=== PATIENT | female | born 1950 | race Caucasian/White ===

== ENCOUNTER 2017-02-12 17:47 | Observation (INO) | payer OTHER ==
[2017-02-12 18:49] LABS: BASOPHILS % (AUTO) 0.2 % (0.2-1.0); EOSINOPHILS # (AUTO) 0.1 x10^3/uL (0.0-0.2); HEMATOCRIT 41.4 % (36.0-47.0); LYMPHOCYTES # (AUTO) 2.2 X10^3/uL (1.3-2.9); LYMPHOCYTES % (AUTO) 22.9 % (21.0-51.0); MEAN CORPUSCULAR HEMOGLOBIN 28.2 pg (27.0-34.0); MEAN CORPUSCULAR HGB CONC 33.7 g/dL (33.0-35.0); MEAN CORPUSCULAR VOLUME 83.5 fL (80.0-100.0); MEAN PLATELET VOLUME 7.4 fL (7.4-11.0); MONOCYTES # (AUTO) 0.6 x10^3/uL (0.3-0.8); MONOCYTES % (AUTO) 6.4 % (0.0-13.0); NEUTROPHILS # (AUTO) 6.6 x10^3/uL (2.2-4.8); NEUTROPHILS % (AUTO) 69.5 % (42.0-75.0); PLATELET COUNT 285 X10^3/uL (150.0-450.0); RED BLOOD COUNT 4.96 X10^6/uL (3.5-5.4); RED CELL DISTRIBUTION WIDTH 13.4 % (11.6-16.5); WHITE BLOOD COUNT 9.6 X10^3/uL (3.6-10.0)
[2017-02-12 19:05] LABS: ALANINE AMINOTRANSFERASE 21 Units/L (12-78); ALBUMIN 3.5 g/dL (3.4-5.0); ALKALINE PHOSPHATASE 115 Units/L (46-116); ASPARTATE AMINO TRANSFERASE 13 Units/L (15-37); BLOOD UREA NITROGEN 18 mg/dL (7-18); CARBON DIOXIDE 27.7 mmol/L (21-32); CHLORIDE 101 mmol/L (98-107); COR NA(FOR HYPERGLY) 144 mmol/L (136-145); CREATININE 0.83 mg/dL (0.55-1.02); GLUCOSE 290 mg/dL (65-99); SODIUM 139 mmol/L (136-145); TOTAL PROTEIN 7.5 g/dL (6.4-8.2); eGFR BLACK RACES > 60 (>60); eGFR NON BLACK RACES > 60 (>60)
[2017-02-12 20:04] LABS: BILIRUBIN,URINE NEGATIVE (NEGATIVE); BLOOD/HEMOGLOBIN,URINE NEGATIVE (NEGATIVE); GLUCOSE, URINE 4+ (NEGATIVE); KETONES,URINE NEGATIVE (NEGATIVE); LEUKOCYTE ESTERASE ,URINE NEGATIVE (NEGATIVE); NITRITES,URINE NEGATIVE (NEGATIVE); PROTEIN,URINE 1+ (NEGATIVE); UROBILINOGEN,URINE NORMAL (NORMAL)
[2017-02-12 20:17] LABS: APPEARANCE,URINE CLEAR (CLEAR); BACTERIA,URINE NEGATIVE /HPF (NEGATIVE); COLOR,URINE YELLOW (YELLOW); RBC,URINE NONE SEEN /HPF (NEGATIVE); SQUAMOUS EPITHELIAL CELL,UR RARE /HPF (NEGATIVE)
[2017-02-12 20:44] VITALS: BMI 28.5
[2017-02-12] MEDS: MORPHINE SULFATE INJ 2 MG IVP PRN (21:20)
[2017-02-12] MEDS: SOLU-Medrol 125 MG VIAL IVP SCH (21:20)
[2017-02-12] MEDS: HumuLIN R SUBCUT PRN (21:26)
[2017-02-12] MEDS ORDERED: TYLENOL 325 MG TAB PO PRN (23:37)
[2017-02-13] MEDS ORDERED: NORCO 5/325 MG TAB PO PRN (02:56)
[2017-02-13] MEDS ORDERED: ATIVAN INJ 2 MG VIAL IVP PRN (02:57)
[2017-02-13] MEDS: TORADOL 30 MG VIAL IVP SCH ×2 (03:41→11:05)
[2017-02-13] MEDS: HumuLIN R SUBCUT PRN ×2 (06:10→14:52)
[2017-02-13] MEDS: SOLU-Medrol 125 MG VIAL IVP SCH (08:24)
[2017-02-13] MEDS: MORPHINE SULFATE INJ 2 MG IVP PRN (12:58)
--- NOTE | 2017-02-13 15:16 | MRI ---
MRI cervical spine without contrast Indication: Neck and left shoulder pain Technique: Multiplanar, multi sequence imaging of the cervical spine without IV contrast administrat ion. Findings: Cervical spine alignment is maintained; however, there is loss of normal cervical lordosis . Vertebral body heights are preserved. There is normal bone marrow signal throughout the cervical s pine. No significant disk desiccation or disc space loss identified. No prevertebral or paraspinal s oft tissue swelling or fluid collection. The craniocervical junction is intact with very mild mass e ffect by the degenerative change within the atlantodental joint. No mass or mass effect identified w ithin the visualized posterior fossa. Cervical spine demonstrates normal signal without evidence of atrophy or expansion. The At C2-3 unremarkable At C3-4 mild disc osteophyte complex and uncovertebral hypertrophy causes mild spinal canal stenosis with mild bilateral neural foraminal narrowing. At C4-5 disc osteophyte complex, uncovertebral hypertrophy and a left lateralizing disc protrusion s een on sagittal image 9 causing moderate spinal canal stenosis and mild cord flattening. There is mo derate left lateral recess compression. Mild left and no significant right-sided neural foraminal st enosis. At C5-6 disc osteophyte complex and uncovertebral hypertrophy causes moderate spinal canal stenosis with mild cord flattening. There is moderate left and mild right-sided neural foraminal narrowing. At C6-7 disc osteophyte complex and uncovertebral hypertrophy causes mild spinal canal stenosis and mild left-sided neural foraminal narrowing. At C7-T1 unremarkable. Impression: Multilevel discogenic degenerative change causing varying degrees of spinal canal and ne ural foraminal stenosis as described above. Reported By:
[2017-02-13 15:38] VITALS: BP 168/89
[2017-02-13] MEDS ORDERED: ATIVAN TAB 1 MG PO PRN (15:52)
[2017-02-13] MEDS ORDERED: FLEXERIL TAB 10 MG PO PRN (15:52)
[2017-02-13] MEDS ORDERED: PHENERGAN TAB 25 MG PO PRN (15:52)
[2017-02-13] MEDS ORDERED: ULTRAM PO PRN (15:52)
--- NOTE | 2017-02-13 15:52 | MRI ---
Left shoulder MRI without contrast Indication: Shoulder pain with decreased range of motion Technique: Multisequence, multiplanar MR images of the left shoulder were obtained without IV contra st. Comparison: None Findings: The exam is mildly degraded by patient motion artifact. Given these limitations, no acute fracture, malalignment or suspicious osseous lesion is identified. The tendons of the rotator cuff appear normal without significant tendinosis or discrete tear. No at rophy or edema of the rotator cuff musculature is seen. There is mild-moderate degenerative arthrosis of the AC joint with mild associated capsular hypertro phy and minimal subchondral edema within the distal clavicle. The type 2 acromion shows no appreciab le anterior or lateral downsloping. No significant fluid within the subdeltoid/subacromial bursa is seen. Accounting for patient motion, the glenohumeral joint space appears grossly well maintained. The intra-articular long head biceps tendon appears grossly intact. The extra-articular tendon is in tact and appropriately positioned within the bicipital groove. No definite focal labral defects are identified, although evaluation is severely limited due to patient motion. Impression: 1. Motion limited exam, as above. 2. AC joint degenerative arthrosis with mild reactive edema within the distal clavicle, which could be the source for the patient's pain. 3. Otherwise no definite rotator cuff or labral tear identified, given limitations of patient motion . Reported By:
[2017-02-13] MEDS ORDERED: COZAAR PO SCH (16:00)
[2017-02-13] MEDS ORDERED: GLUCOPHAGE PO SCH (17:00)
[2017-02-13] MEDS ORDERED: LANTUS SC SCH (21:00)
[2017-02-13] MEDS ORDERED: ARICEPT TAB 10 MG PO SCH (21:00)
[2017-02-13] MEDS ORDERED: PATIENT'S HOME MEDICATION (Metformin Hcl [Metformin Hcl] 1,000 MG) PO SCH (21:00)
[2017-02-13] MEDS ORDERED: NEURONTIN CAP 300 MG PO SCH (22:00)
[2017-02-13] MEDS ORDERED: NEURONTIN CAP 400 MG PO SCH (22:00)
== END 2017-02-13 16:30 | disposition home or self-care (01) ==
LOC: ICU 17:47
PROVIDERS: ADMIT Internal Medicine; ATTEND Internal Medicine
DX: M54.2 Cervicalgia (principal); M25.512 Pain in left shoulder; E11.65 Type 2 diabetes mellitus with hyperglycemia; M48.02 Spinal stenosis, cervical region; M62.81 Muscle weakness (generalized)
CPT/HCPCS: 36415; 72141; 73221; 80053; 81001; 85025; A4216; A4222; G0378; J1815; J1885; J2060; J2270; J2930